=== PATIENT | female | born 1970 | race Caucasian/White ===

== ENCOUNTER 2020-01-16 10:13 | Emergency (ER) | payer SELFPAY ==
[~2020-01-16] VITALS: Ht 170.1 cm; Wt 140.4 kg
[~2020-01-16 10:13] MED LIST: BUPR150T14 PO; DOCU-143 PO; GBPN600T PO; HYDR-4227 PO; HYDR12.56 PO; IBUP-1773 PO; LOSA100T57 PO; TEMA30CA PO
[2020-01-16 10:50] LABS: HEMATOCRIT 40 % (35-52); HEMOGLOBIN 13.3 G/DL (11.5-16.0); MEAN CORPUSCULAR HEMOGLOBIN 29 PG (25-34); MEAN CORPUSCULAR VOLUME 89 FL (80-99); WHITE BLOOD COUNT 7.7 10^3/uL (4.3-11.0)
[2020-01-16 10:51] LABS: BASOPHILS % (AUTO) 0 % (0-10); EOSINOPHILS # (AUTO) 0.1 10^3/uL (0.0-0.3); EOSINOPHILS % (AUTO) 1 % (0-10); LYMPHOCYTES # (AUTO) 1.5 X 10^3 (1.0-4.0); LYMPHOCYTES % (AUTO) 19 % (12-44); MEAN CORPUSCULAR HGB CONC 33 G/DL (32-36); MEAN PLATELET VOLUME 10.7 FL (7.4-10.4); MONOCYTES # (AUTO) 0.5 X 10^3 (0.0-1.0); MONOCYTES % (AUTO) 7 % (0-12); NEUTROPHILS # (AUTO) 5.6 X 10^3 (1.8-7.8); NEUTROPHILS % (AUTO) 73 % (42-75); PLATELET COUNT 212 10^3/uL (130-400)
--- NOTE | 2020-01-16 10:58 | ED General ---
General Chief Complaint: Respiratory Problems Stated Complaint: SOB Nursing Triage Note: Patient presents to the ED with c/o of shortness of breath and chest tightness. She states that she hasn't felt well for the past week. She reports that she became increasingly short of breath over the last 12 hour. She denies any pain but reports chest tightness. She also states that she has her temperature monitored at work and has not experienced a fever. Nursing Sepsis Screen: No Definite Risk History of Present Illness Date Seen by Provider: Jan 16, 2020 Time Seen by Provider: 10:53 Initial Comments 49-year-old female says she just generally hasn't felt well for about a week nothing more specific says that over the last 12 hours she's felt increasingly short of breath with a vague chest tightness but denies pain no fever no cough she's felt a little lightheaded but has not had palpitations or syncope she has hypertension but denies any other cardiac or respiratory history she has occasionally used metered-dose inhaler when ill but not otherwise is unaware of any exposure to illness Arrives in no apparent distress pulse 94 and regular respiratory rate 20 with an O2 sat on room air of 96% blood pressure 145/80 afebrile at 36.1 Allergies and Home Medications Allergies Coded Allergies: Sulfa (Sulfonamide Antibiotics) (Verified Allergy, Unknown, HIVES, 06/29/15) prochlorperazine (Verified Allergy, Unknown, ANAPHYLAXIS, 06/29/15) Home Medications Albuterol Sulfate 1 Puff Puff, 2 PUFF INH Q4H 1 PUFF = 90 MCG Prescribed by: TED MUNIZ on 01/16/20 112 Azithromycin 250 Mg Tablet, 250 MG PO DAILY Prescribed by: TED MUNIZ on 01/16/20 112 Bupropion HCl 150 Mg Tablet.er, 150 MG PO BID, (Reported) Docusate Sodium 100 Mg Capsule, 100 MG PO BID PRN for CONSTIPATION Prescribed by: COLTON MEHTA on 07/02/15 1129 Gabapentin 600 Mg Tablet, 1,200 MG PO TID PRN for BACK/HIP/LEG PAIN, (Reported) TAKE 2 (600MG) TABS Hydrochlorothiazide 12.5 Mg Tablet, 12.5 MG PO DAILY, (Reported) Hydrocodone/Acetaminophen 1 Each Tablet, 1 EACH PO Q4H PRN for PAIN Prescribed by: COLTON MEHTA on 07/02/15 1129 Ibuprofen 600 Mg Tablet, 600 MG PO Q6H Prescribed by: COLTON MEHTA on 07/02/15 1129 Losartan Potassium 100 Mg Tablet, 100 MG PO DAILY, (Reported) Temazepam 30 Mg Capsule, 30 MG PO HS PRN for INSOMNIA, (Reported) Patient Home Medication List Home Medication List Reviewed: Yes Review of Systems Review of Systems Constitutional: No fever EENTM: no symptoms reported Respiratory: No cough; short of breath Cardiovascular: other (some chest tightness) Gastrointestinal: no symptoms reported Genitourinary: no symptoms reported Musculoskeletal: no symptoms reported Skin: no symptoms reported Psychiatric/Neurological: No Symptoms Reported Hematologic/Lymphatic: No Symptoms Reported Past Ozkoopz-Nqggry-Kdxdjh Hx Patient Social History Alcohol Use: Denies Use Recreational Drug Use: No Smoking Status: Never a Smoker 2nd Hand Smoke Exposure: No Recent Foreign Travel: No Contact w/Someone Who Travel: No Recent Infectious Disease Expo: No Recent Hopitalizations: No Physical Abuse: No Sexual Abuse: No Mistreated: No Fear: No Immunizations Up To Date Date of Pneumonia Vaccine: Jan 29, 2014 Date of Influenza Vaccine: Jan 29, 2015 Seasonal Allergies Seasonal Allergies: No Past Medical History Surgeries: Yes (EYE SX X2 AN , D&C, C/S X2, ) Hysterectomy Respiratory: No Cardiac: Yes Hypotension Neurological: No Reproductive Disorders: Yes Genitourinary: No Gastrointestinal: No Gastroesophageal Reflux Musculoskeletal: No Endocrine: No HEENT: No Cancer: No Psychosocial: Yes Anxiety, Depression Integumentary: No Blood Disorders: No Family Medical History Cardiovascular disease 19 MOTHER Diabetes mellitus 19 FATHER FH: cancer 19 MOTHER (OVARIAN AND UTERINE) Hypertension 19 FATHER 19 MOTHER G8 BROTHER G8 SISTER Physical Exam Vital Signs Vital Signs - First Documented 01/16/20 10:18 Temp 36.1 Pulse 94 Resp 20 B/P (MAP) 145/80 (101) Pulse Ox 96 O2 Delivery Room Air Capillary Refill : Less Than 3 Seconds Height, Weight, BMI Height: 5'7.00" Weight: 334lbs. oz. [id number]; 48.00 BMI Method: General Appearance: No Apparent Distress Eyes: Bilateral Eye PERRL, Bilateral Eye EOMI HEENT: Normal ENT Inspection, Pharynx Normal, Moist Mucous Membranes Neck: Supple Respiratory: Lungs Clear, Normal Breath Sounds, No Accessory Muscle Use, No Respiratory Distress Cardiovascular: Regular Rate, Rhythm, No Murmur Gastrointestinal: Normal Bowel Sounds, Non Tender, Soft Focused Exam Lactate Level 01/16/20 11:30: Lactic Acid Level 0.93 Lactic Acid Level Laboratory Tests Test 01/16/20 11:30 Lactic Acid Level 0.93 MMOL/L (0.50-2.00) Progress/Results/Core Measures Suspected Sepsis Recent Fever Within 48 Hours: No Infection Criteria Present: Suspected New Infection New/Unexplained Altered Menta: No Sepsis Screen: No Definite Risk SIRS Temperature: Pulse: 94 Respiratory Rate: 20 Laboratory Tests 01/16/20 10:34: White Blood Count 7.7 Blood Pressure 145 /80 Mean: 101 01/16/20 11:30: Lactic Acid Level 0.93 Laboratory Tests 01/16/20 10:34: Creatinine 0.87, Platelet Count 212, Total Bilirubin 0.6 Results/Orders Lab Results Laboratory Tests Test 01/16/20 10:34 01/16/20 11:15 01/16/20 11:30 Range/Units White Blood Count 7.7 4.3-11.0 10^3/uL Red Blood Count 4.52 4.35-5.85 10^6/uL Hemoglobin 13.3 11.5-16.0 G/DL Hematocrit 40 35-52 % Mean Corpuscular Volume 89 80-99 FL Mean Corpuscular Hemoglobin 29 25-34 PG Mean Corpuscular Hemoglobin Concent 33 32-36 G/DL Red Cell Distribution Width 13.2 10.0-14.5 % Platelet Count 212 130-400 10^3/uL Mean Platelet Volume 10.7 H 7.4-10.4 FL Neutrophils (%) (Auto) 73 42-75 % Lymphocytes (%) (Auto) 19 12-44 % Monocytes (%) (Auto) 7 0-12 % Eosinophils (%) (Auto) 1 0-10 % Basophils (%) (Auto) 0 0-10 % Neutrophils # (Auto) 5.6 1.8-7.8 X 10^3 Lymphocytes # (Auto) 1.5 1.0-4.0 X 10^3 Monocytes # (Auto) 0.5 0.0-1.0 X 10^3 Eosinophils # (Auto) 0.1 0.0-0.3 10^3/uL Basophils # (Auto) 0.0 0.0-0.1 10^3/uL D-Dimer 0.75 H 0.00-0.49 UG/ML Sodium Level 137 135-145 MMOL/L Potassium Level 3.7 3.6-5.0 MMOL/L Chloride Level 101 98-107 MMOL/L Carbon Dioxide Level 23 21-32 MMOL/L Anion Gap 13 5-14 MMOL/L Blood Urea Nitrogen 14 7-18 MG/DL Creatinine 0.87 0.60-1.30 MG/DL Estimat Glomerular Filtration Rate > 60 BUN/Creatinine Ratio 16 Glucose Level 102 70-105 MG/DL Calcium Level 8.7 8.5-10.1 MG/DL Corrected Calcium 9.1 8.5-10.1 MG/DL Total Bilirubin 0.6 0.1-1.0 MG/DL Aspartate Amino Transf (AST/SGOT) 22 5-34 U/L Alanine Aminotransferase (ALT/SGPT) 17 0-55 U/L Alkaline Phosphatase 70 40-136 U/L Troponin I < 0.30 <0.30 NG/ML Total Protein 6.6 6.4-8.2 GM/DL Albumin 3.5 3.2-4.5 GM/DL Lactic Acid Level 0.93 0.50-2.00 MMOL/L My Orders Orders - TED MUNIZ MD Ekg Tracing (01/16/20 10:42) Chest Pa/Lat (2 View) (01/16/20 10:42) Iv Heplock-Insert (Order) (01/16/20 10:42) Cbc With Automated Diff (01/16/20 10:42) Fibrin Degradation Products (01/16/20 10:42) Troponin I Fs (01/16/20 10:42) Comprehensive Metabolic Panel (01/16/20 10:42) Monitor-Rhythm Ecg Trace Only (01/16/20 10:42) Blood Culture (01/16/20 11:12) Lactic Acid Analyzer (01/16/20 11:12) Coronavirus Sars-Cov-2 So 2018 (01/16/20 11:12) Ceftriaxone For Iv Use (Rocephin For I (01/16/20 11:15) Azithromycin Tablet (Zithromax Tablet) (01/16/20 11:15) Ct Angio Chest W (01/16/20 11:47) Blood Culture (01/16/20 11:30) Iohexol Injection (Omnipaque 350 Mg/Ml 1 (01/16/20 12:00) Received Contrast (Hold Metformin- Contr (01/16/20 12:00) Sodium Chloride Flush (Catheter Flush Sy (01/16/20 12:00) Ns (Ivpb) (Sodium Chloride 0.9% Ivpb Bag (01/16/20 12:00) Medications Given in ED Current Medications Medications Dose Ordered Sig/Price Route Start Time Stop Time Status Last Admin Dose Admin Azithromycin 500 mg ONCE ONCE PO 01/16/20 11:15 01/16/20 11:23 DC 01/16/20 11:35 500 MG Ceftriaxone Sodium 1000 mg/ Sterile Water 10 ml @ 200 mls/hr ONCE ONCE IV 01/16/20 11:15 01/16/20 11:23 DC 01/16/20 11:35 200 MLS/HR Iohexol 125 ml ONCE ONCE IV 01/16/20 12:00 01/16/20 12:01 DC 01/16/20 12:25 125 ML Sodium Chloride 10 ml NEEDED PRN IV 01/16/20 12:00 01/16/20 12:25 10 ML Sodium Chloride 100 ml ONCE ONCE IV 01/16/20 12:00 01/16/20 12:01 DC 01/16/20 12:25 100 ML Vital Signs/I&O 01/16/20 10:18 Temp 36.1 Pulse 94 Resp 20 B/P (MAP) 145/80 (101) Pulse Ox 96 O2 Delivery Room Air Capillary Refill : Less Than 3 Seconds Blood Pressure Mean: 101 Progress Note : Progress Note The official chest x-ray report - impression - patchy right-sided pulmonary infi ltrates consistent with pneumonia Hemoglobin 13.3 and white blood count 7700 CMP and troponin are both negative / normal d-dimer -high CT chest - infiltrates, no PE ECG Initial ECG Impression Date: Jan 16, 2020 Initial ECG Impression Time: 10:59 Comment EKG shows sinus rhythm rate 88 no acute changes normal-appearing EKG Departure Impression Primary Impression: Pneumonia Qualified Codes: J18.9 - Pneumonia, unspecified organism Disposition: HOME, SELF-CARE Condition: Stable Departure-Patient Inst. Referrals: ELIA ELIZABETH MD (PCP/Family) Primary Care Physician Patient Instructions: COVID19, Pneumonia, Adult (DC) Add. Discharge Instructions: There does appear to be pneumonia in the right lung, however it does not seem your current status requires hospitalization. Please call and arrange a follow-up with your primary physician within the next several days You should continue to wear a mask and self isolated until the covid result is available Don't hesitate to return if you are worsening Scripts Albuterol Sulfate (VENTOLIN HFA) 1 Puff Puff 2 PUFF INH Q4H, #1 PUFF 1 PUFF = 90 MCG Prov: TED MUNIZ MD 01/16/20 Azithromycin (Azithromycin) 250 Mg Tablet 250 MG PO DAILY, #4 TAB 0 Refills Prov: TED MUNIZ MD 01/16/20 ETD MUNIZ MD Jan 16, 2020 10:58
--- NOTE | 2020-01-16 11:06 | Diagnostic Imaging Report ---
INDICATION: Chest tightness and shortness of breath. TIME OF EXAM: 10:53 AM No prior exams are available for comparison. FINDINGS: Patchy airspace infiltrates are identified in the right upper and right lower lobe. Left lung is clear. There is no effusion or pneumothorax. Heart size normal. IMPRESSION: Patchy right-sided pulmonary infiltrates consistent with pneumonia. Dictated by: Dictated on workstation # [id number]
[2020-01-16] MEDS ORDERED: cefTRIAXone FOR IV USE 1,000 MG in WATER (STERILE) FOR INJECTION 10 ML IV ONE (11:15)
[2020-01-16] MEDS ORDERED: AZITHROMYCIN 250 MG TAB (ZITHROMAX) PO ONE (11:15)
[2020-01-16 11:16] LABS: ALANINE AMINOTRANSFERASE 17 U/L (0-55); ALKALINE PHOSPHATASE 70 U/L (40-136); BILIRUBIN,TOTAL 0.6 MG/DL (0.1-1.0); BUN/CREATININE RATIO 16; CALCIUM 8.7 MG/DL (8.5-10.1); CARBON DIOXIDE 23 MMOL/L (21-32); CHLORIDE 101 MMOL/L (98-107); CREATININE SERUM 0.87 MG/DL (0.60-1.30); GFR ESTIMATED > 60; GLUCOSE 102 MG/DL (70-105); POTASSIUM 3.7 MMOL/L (3.6-5.0); SODIUM 137 MMOL/L (135-145)
[2020-01-16 11:17] LABS: ALBUMIN 3.5 GM/DL (3.2-4.5); TOTAL PROTEIN 6.6 GM/DL (6.4-8.2)
[2020-01-16] MEDS ORDERED: RT-ALBUINH INH (11:27)
[2020-01-16] MEDS ORDERED: AZIT250T12 PO (11:27)
[2020-01-16] MEDS ORDERED: NS 100 ML (IVPB) BAG IV ONE (12:00)
[2020-01-16] MEDS ORDERED: CATHETER FLUSH 10 ML SYR IV PRN (12:00)
[2020-01-16] MEDS ORDERED: IOHEXOL 350 MG/ML 150 ML (OMNIPAQUE 350) VIAL IV ONE (12:00)
[2020-01-16] MEDS ORDERED: HOLD METFORMIN - RECEIVED CONTRAST 20 ML VIAL IV SCH (12:00)
--- NOTE | 2020-01-16 12:45 | Diagnostic Imaging Report ---
PROCEDURE: CT angiography of the chest with contrast. TECHNIQUE: Multiple contiguous axial images were obtained through the chest after uneventful bolus administration of intravenous contrast. 3D reconstructed CTA MIP acquisitions were also performed. Auto Exposure Controls were utilized during the CT exam to meet ALARA standards for radiation dose reduction. INDICATION: Chest tightness, shortness of breath, elevated D-dimer. COMPARISON: No relevant comparison. FINDINGS: There are patchy 5 lobed airspace infiltrates with areas of air bronchogram formation and consolidation, as well as nonconsolidating patchy groundglass densities diffusely. The lung volumes are symmetric. No substantial atelectasis. No evidence for abscess. No pleural fluid. No empyema. There is no evidence for pulmonary arterial embolus. The thoracic aorta is patent and nonaneurysmal. There is no effusion or pneumothorax. No acute soft tissue or osseous chest wall lesion. The visualized upper abdomen shows the spleen size to be at the upper limits of normal. The liver nonfocal. Previous cholecystectomy. The kidneys were unobstructed, although incompletely visualized. IMPRESSION: Patchy 5 lobed infiltrates, presumed pneumonia. Negative for PE or acute aortic disease. No fluid collection or adenopathy. Dictated by: Dictated on workstation # [id number]
[2020-01-16 12:55] VITALS: BP 128/67
--- NOTE | 2020-01-17 09:35 | NUR ---
attempted to return call to pt and notify of positive results. Left message to call back if she had not heard anything from Dustin.
== END 2020-01-16 13:04 | disposition home or self-care (01) ==
LOC: EDUNIT# 10:13 → ER FS 10:15
DX: U07.1 COVID-19 (principal); J12.89 Other viral pneumonia; F41.9 Anxiety disorder, unspecified; F32.9 Major depressive disorder, single episode, unspecified; Z82.49 Family history of ischemic heart disease and other diseases of the circulatory system; Z88.2 Allergy status to sulfonamides; Z88.8 Allergy status to other drugs, medicaments and biological substances; Z83.3 Family history of diabetes mellitus
CPT/HCPCS: 36415; 71046; 71275; 80053; 83605; 84484; 85025; 85379; 87040; 93005; 99284; U0002; 87635

== ENCOUNTER → 2020-09-02 | Outpatient (CLI) | payer SELFPAY ==
[~2020-09-02] MED LIST changes: +AZIT250T12 PO; +RT-ALBUINH INH
--- NOTE | 2020-09-02 16:14 | Diagnostic Imaging Report ---
EXAMINATION: CT head without contrast. TECHNIQUE: Multiple contiguous axial images were obtained through the brain without the use of intravenous contrast. All CT scans use one or more of the following dose optimizing techniques: automated exposure control, MA and/or KvP adjustment based on patient size and exam type or iterative reconstruction. HISTORY: Bad headache. Double vision. COMPARISON: None available. FINDINGS: No large acute territorial ischemia, mass or hemorrhage. No midline shift or mass effect. Mild parenchymal volume loss is noted in the bilateral frontal regions. The ventricles and basilar cisterns are patent and unremarkable. The orbits are normal. Paranasal sinuses are normal. Mastoid air cells are clear. No soft tissue abnormality is seen. No osseus lesion or fracture is seen. IMPRESSION: 1. No large acute territorial ischemia, mass or hemorrhage. 2. Mild parenchymal volume loss primarily in the bilateral frontal regions. Dictated by: Dictated on workstation # [id number]
== END ==
LOC: RAD FS 15:30
PROVIDERS: ATTEND Family Medicine
DX: H53.2 Diplopia (principal); G31.9 Degenerative disease of nervous system, unspecified
CPT/HCPCS: 70450

== ENCOUNTER 2022-02-22 14:09 | Emergency (ER) | payer SELFPAY ==
[~2022-02-22] VITALS: Ht 170.2 cm; Wt 156.5 kg
[~2022-02-22 14:09] MED LIST changes: +BUPR-105 PO; -BUPR150T14 PO
[2022-02-22] MEDS ORDERED: morphine INJ 10 MG/ML 1ML (SYR OR VIAL) IVP STA (14:22)
--- NOTE | 2022-02-22 14:22 | ED General ---
General Chief Complaint: - Reproductive Stated Complaint: SUPRAPUBIC PAIN Source of Information: Patient Exam Limitations: No Limitations History of Present Illness Date Seen by Provider: Feb 22, 2022 Time Seen by Provider: 14:05 Initial Comments 51-year-old female presents for right groin, right flank pain. Symptoms started this morning describes sharp stabbing and severe. No aggravating or alleviating factors. She has never had similar pain in the past. No hematuria or dysuria. Normal bowel movements. No vaginal symptoms. She is had her gallbladder removed and a total abdominal hysterectomy. She has no nausea or vomiting. Allergies and Home Medications Allergies Coded Allergies: Sulfa (Sulfonamide Antibiotics) (Verified Allergy, Unknown, HIVES, 06/29/15) prochlorperazine (Verified Allergy, Unknown, ANAPHYLAXIS, 06/29/15) Patient Home Medication List Home Medication List Reviewed: Yes Albuterol Sulfate (Ventolin Hfa) 1 Puff Puff, 2 PUFF INH Q4H Prescribed by: TED MUNIZ on 01/16/20 112 Azithromycin (Azithromycin) 250 Mg Tablet, 250 MG PO DAILY Prescribed by: TED MUNIZ on 01/16/20 112 Bupropion HCl (Bupropion HCl Sr) 150 Mg Tablet.er, 150 MG PO BID, (Reported) Entered as Reported by: ARNAV LANE on 06/29/15 1408 Docusate Sodium (Colace) 100 Mg Capsule, 100 MG PO BID PRN for CONSTIPATION Prescribed by: COLTON MEHTA on 07/02/15 1129 Gabapentin (Gabapentin) 600 Mg Tablet, 1,200 MG PO TID PRN for BACK/HIP/LEG PAIN, (Reported) Entered as Reported by: ARNAV LANE on 06/29/15 1408 Hydrochlorothiazide (Hydrochlorothiazide) 12.5 Mg Tablet, 12.5 MG PO DAILY, (Reported) Entered as Reported by: ARNAV LANE on 06/29/15 1408 Hydrocodone/Acetaminophen (Herrick 7.5-325 Tablet) 1 Each Tablet, 1 EACH PO Q4H PRN for PAIN Prescribed by: COLTON MEHTA on 07/02/15 1129 Ibuprofen (Ibuprofen) 600 Mg Tablet, 600 MG PO Q6H Prescribed by: COLTON MEHTA on 07/02/15 1129 Losartan Potassium (Losartan Potassium) 100 Mg Tablet, 100 MG PO DAILY, (Reported) Entered as Reported by: ARNAV LANE on 06/29/15 140 Temazepam (Temazepam) 30 Mg Capsule, 30 MG PO HS PRN for INSOMNIA, (Reported) Entered as Reported by: ARNAV LANE on 06/29/15 140 Review of Systems Review of Systems Constitutional: no symptoms reported EENTM: no symptoms reported Respiratory: no symptoms reported Cardiovascular: no symptoms reported Gastrointestinal: abdominal pain Genitourinary: no symptoms reported Musculoskeletal: no symptoms reported Skin: no symptoms reported Psychiatric/Neurological: No Symptoms Reported Hematologic/Lymphatic: No Symptoms Reported Immunological/Allergic: no symptoms reported Past Xyxhhvo-Bvyjvx-Wvsjxz Hx Patient Social History Tobacco Use?: No Use of E-Cig and/or Vaping dev: No Substance use?: No Alcohol Use?: No Seasonal Allergies Seasonal Allergies: No Past Medical History Surgeries: Yes (EYE SX X2 AN , D&C, C/S X2, ) Hysterectomy Respiratory: No Cardiac: Yes Hypotension Neurological: No Reproductive Disorders: Yes Genitourinary: No Gastrointestinal: No Gastroesophageal Reflux Musculoskeletal: No Endocrine: No HEENT: No Cancer: No Psychosocial: Yes Anxiety, Depression Integumentary: No Blood Disorders: No Family Medical History Reviewed Nursing Family Hx Cardiovascular disease 19 MOTHER Diabetes mellitus 19 FATHER FH: cancer 19 MOTHER (OVARIAN AND UTERINE) Hypertension 19 FATHER 19 MOTHER G8 BROTHER G8 SISTER No Pertinent Family Hx Physical Exam Vital Signs Vital Signs - First Documented 02/22/22 14:20 Temp 36.5 Pulse 70 Resp 18 B/P (MAP) 242/116 (158) Pulse Ox 99 O2 Delivery Room Air Capillary Refill : Height, Weight, BMI Height: 5'7.00" Weight: 334lbs. oz. 151.880544jh; 48.00 BMI Method: General Appearance: WD/WN, Moderate Distress (Appears to be in pain, writhing i n the bed) HEENT: Normal ENT Inspection, Pharynx Normal Neck: Full Range of Motion, Normal Inspection, Non Tender, Supple Respiratory: Chest Non Tender, Lungs Clear, Normal Breath Sounds, No Accessory Muscle Use, No Respiratory Distress Cardiovascular: Regular Rate, Rhythm, No Edema, No Gallop, No JVD, No Murmur, Normal Peripheral Pulses Gastrointestinal: Normal Bowel Sounds, No Organomegaly, No Pulsatile Mass, Soft, Tenderness (Right lower abdomen, right flank) Back: Normal Inspection, CVA Tenderness (R) Extremity: Normal Capillary Refill, Normal Inspection, Normal Range of Motion, Non Tender, No Calf Tenderness Neurologic/Psychiatric: Alert, Oriented x3, No Motor/Sensory Deficits Skin: Normal Color, Warm/Dry Lymphatic: No Adenopathy Progress/Results/Core Measures Suspected Sepsis SIRS Temperature: Pulse: Respiratory Rate: Laboratory Tests 02/22/22 14:25: White Blood Count 9.9 Blood Pressure / Mean: Laboratory Tests 02/22/22 14:25: Creatinine 0.87, Platelet Count 245, Total Bilirubin 0.3 Results/Orders Lab Results Laboratory Tests Test 02/22/22 14:18 02/22/22 14:25 Range/Units Urine Color YELLOW Urine Clarity CLEAR Urine pH 6.0 5-9 Urine Specific [place] 1.015 L 1.016-1.022 Urine Protein NEGATIVE NEGATIVE Urine Glucose (UA) NEGATIVE NEGATIVE Urine Ketones NEGATIVE NEGATIVE Urine Nitrite NEGATIVE NEGATIVE Urine Bilirubin NEGATIVE NEGATIVE Urine Urobilinogen 0.2 < = 1.0 MG/DL Urine Leukocyte Esterase NEGATIVE NEGATIVE Urine RBC (Auto) 1+ H NEGATIVE Urine RBC 2-5 H /HPF Urine WBC 0-2 /HPF Urine Squamous Epithelial Cells RARE /HPF Urine Crystals NONE /LPF Urine Bacteria NEGATIVE /HPF Urine Casts PRESENT /LPF Urine Hyaline Casts RARE /LPF Urine Mucus NEGATIVE /LPF Urine Culture Indicated NO White Blood Count 9.9 4.3-11.0 10^3/uL Red Blood Count 4.25 3.80-5.11 10^6/uL Hemoglobin 11.6 11.5-16.0 g/dL Hematocrit 35 35-52 % Mean Corpuscular Volume 83 80-99 fL Mean Corpuscular Hemoglobin 27 25-34 pg Mean Corpuscular Hemoglobin Concent 33 32-36 g/dL Red Cell Distribution Width 14.6 H 10.0-14.5 % Platelet Count 245 130-400 10^3/uL Mean Platelet Volume 9.8 9.0-12.2 fL Immature Granulocyte % (Auto) 0 % Neutrophils (%) (Auto) 72 42-75 % Lymphocytes (%) (Auto) 20 12-44 % Monocytes (%) (Auto) 6 0-12 % Eosinophils (%) (Auto) 2 0-10 % Basophils (%) (Auto) 1 0-10 % Neutrophils # (Auto) 7.1 1.8-7.8 10^3/uL Lymphocytes # (Auto) 2.0 1.0-4.0 10^3/uL Monocytes # (Auto) 0.6 0.0-1.0 10^3/uL Eosinophils # (Auto) 0.2 0.0-0.3 10^3/uL Basophils # (Auto) 0.1 0.0-0.1 10^3/uL Immature Granulocyte # (Auto) 0.0 0.0-0.1 10^3/uL Sodium Level 138 135-145 MMOL/L Potassium Level 4.0 3.6-5.0 MMOL/L Chloride Level 101 98-107 MMOL/L Carbon Dioxide Level 23 21-32 MMOL/L Anion Gap 14 5-14 MMOL/L Blood Urea Nitrogen 18 7-18 MG/DL Creatinine 0.87 0.60-1.30 MG/DL Estimat Glomerular Filtration Rate 82 BUN/Creatinine Ratio 21 Glucose Level 124 H 70-105 MG/DL Calcium Level 9.0 8.5-10.1 MG/DL Corrected Calcium 9.2 8.5-10.1 MG/DL Total Bilirubin 0.3 0.1-1.0 MG/DL Aspartate Amino Transf (AST/SGOT) 21 5-34 U/L Alanine Aminotransferase (ALT/SGPT) 16 0-55 U/L Alkaline Phosphatase 90 40-136 U/L Total Protein 7.1 6.4-8.2 GM/DL Albumin 3.7 3.2-4.5 GM/DL Lipase 18 8-78 U/L My Orders Orders - EDEN FERRER DO Cbc With Automated Diff (02/22/22 14:22) Comprehensive Metabolic Panel (02/22/22 14:22) Lipase (02/22/22 14:22) Ua Culture If Indicated (02/22/22 14:22) Ct Abd/Pelvis Wo(Kidney Stone) (02/22/22 14:22) Morphine Injection (Morphine Injection (02/22/22 14:22) Ketorolac Injection (Toradol Injection) (02/22/22 14:45) Ketorolac Injection (Toradol Injection) (02/22/22 14:37) Hydromorphone Injection (Dilaudid Inject (02/22/22 15:30) Ns Iv 1000 Ml (Sodium Chloride 0.9%) (02/22/22 15:30) Medications Given in ED Vital Signs/I&O 02/22/22 02/22/22 14:20 16:20 Temp 36.5 36.2 Pulse 70 97 Resp 18 22 B/P (MAP) 242/116 (158) 178/68 Pulse Ox 99 94 O2 Delivery Room Air Room Air 02/23/22 00:00 Intake Total 1000 ml Balance 1000 ml Capillary Refill : Diagnostic Imaging Diagonstic Imaging: CT Plain Films/CT/US/NM/MRI: abdomen Comments NAME: SARI [facility]CGOVERN [facility] REC#: [id number] PT STATUS: REG ER : 1970 PHYSICIAN: EDEN FERRER DO ADMIT DATE: 02/22/22/ER FS Draft Date of Exam:02/22/22 CT ABD/PELVIS WO(KIDNEY STONE) PROCEDURE: CT urinary tract, rule out kidney stone. TECHNIQUE: Multiple contiguous axial images were obtained through the abdomen and pelvis without the use of intravenous contrast. Auto Exposure Controls were utilized during the CT exam to meet ALARA standards for radiation dose reduction. INDICATION: Right flank pain There is no focal hepatic, pancreatic or splenic abnormality. Gallbladder surgically absent. Adrenal glands are also unremarkable. There is mild left renal atrophy with punctate nonobstructing stone in the upper pole of the left kidney. There is moderate right hydronephrosis and hydroureter to the level of an approximately 1 cm stone within the proximal right ureter. There does punctate calcification at the right ureterovesical junction as well. Urinary bladder is decompressed. No free fluid is seen within the abdomen or pelvis. There is no evidence of organized fluid collection or focal inflammation. IMPRESSION: At least partially obstructing 1 cm calculus in the proximal right ureter with moderate right hydronephrosis. There may also be punctate stone at the level of the right ureterovesical junction. Minimal left nephrolithiasis is noted without additional obstruction. Departure Impression Primary Impression: Ureterolithiasis Additional Impression: Renal colic on right side Departure-Patient Inst. Referrals: ELIA ELIZABETH MD (PCP) Primary Care Physician EDEN FERRER DO Feb 22, 2022 14:21
[2022-02-22 14:31] LABS: BASOPHILS # (AUTO) 0.1 10^3/uL (0.0-0.1); BASOPHILS % (AUTO) 1 % (0-10); EOSINOPHILS # (AUTO) 0.2 10^3/uL (0.0-0.3); EOSINOPHILS % (AUTO) 2 % (0-10); HEMATOCRIT 35 % (35-52); HEMOGLOBIN 11.6 g/dL (11.5-16.0); LYMPHOCYTES % (AUTO) 20 % (12-44); MEAN CORPUSCULAR HEMOGLOBIN 27 pg (25-34); MEAN CORPUSCULAR HGB CONC 33 g/dL (32-36); MEAN CORPUSCULAR VOLUME 83 fL (80-99); MEAN PLATELET VOLUME 9.8 fL (9.0-12.2); MONOCYTES # (AUTO) 0.6 10^3/uL (0.0-1.0); MONOCYTES % (AUTO) 6 % (0-12); NEUTROPHILS # (AUTO) 7.1 10^3/uL (1.8-7.8); NEUTROPHILS % (AUTO) 72 % (42-75); PLATELET COUNT 245 10^3/uL (130-400); WHITE BLOOD COUNT 9.9 10^3/uL (4.3-11.0)
[2022-02-22 14:33] LABS: BILIRUBIN,URINE NEGATIVE (NEGATIVE); CLARITY,URINE CLEAR; COLOR,URINE YELLOW; GLUCOSE, URINE (UA) NEGATIVE (NEGATIVE); KETONES,URINE NEGATIVE (NEGATIVE); LEUKOCYTE ESTERASE ,URINE NEGATIVE (NEGATIVE); NITRITE,URINE NEGATIVE (NEGATIVE); PROTEIN,URINE NEGATIVE (NEGATIVE)
[2022-02-22] MEDS ORDERED: KETOROLAC 30 MG/ML VIAL ONE (14:37)
[2022-02-22 14:38] LABS: BACTERIA,URINE NEGATIVE /HPF; HYALINE CASTS, URINE RARE /LPF; SQUAMOUS EPITHELIAL CELL,UR RARE /HPF; WBC,URINE 0-2 /HPF
[2022-02-22] MEDS ORDERED: KETOROLAC 30 MG/ML VIAL IVP ONE (14:45)
[2022-02-22 14:50] LABS: CREATININE SERUM 0.87 MG/DL (0.60-1.30)
[2022-02-22 14:51] LABS: ALBUMIN 3.7 GM/DL (3.2-4.5); BILIRUBIN,TOTAL 0.3 MG/DL (0.1-1.0); TOTAL PROTEIN 7.1 GM/DL (6.4-8.2)
--- NOTE | 2022-02-22 15:09 | Diagnostic Imaging Report ---
PROCEDURE: CT urinary tract, rule out kidney stone. TECHNIQUE: Multiple contiguous axial images were obtained through the abdomen and pelvis without the use of intravenous contrast. Auto Exposure Controls were utilized during the CT exam to meet ALARA standards for radiation dose reduction. INDICATION: Right flank pain There is no focal hepatic, pancreatic or splenic abnormality. Gallbladder surgically absent. Adrenal glands are also unremarkable. There is mild left renal atrophy with punctate nonobstructing stone in the upper pole of the left kidney. There is moderate right hydronephrosis and hydroureter to the level of an approximately 1 cm stone within the proximal right ureter. There does punctate calcification at the right ureterovesical junction as well. Urinary bladder is decompressed. No free fluid is seen within the abdomen or pelvis. There is no evidence of organized fluid collection or focal inflammation. IMPRESSION: At least partially obstructing 1 cm calculus in the proximal right ureter with moderate right hydronephrosis. There may also be punctate stone at the level of the right ureterovesical junction. Minimal left nephrolithiasis is noted without additional obstruction. Dictated by: Dictated on workstation # [id number]
[2022-02-22] MEDS ORDERED: HYDROmorphone 2 MG/ML VIAL (DILAUDID) IV ONE (15:30)
[2022-02-22] MEDS ORDERED: NS IV 1000 ML 1,000 ML IV SCH (15:30)
[2022-02-22 16:20] VITALS: BP 178/68
== END 2022-02-22 16:23 | disposition short-term general hospital (02) ==
LOC: EDUNIT# 14:09 → ER FS 14:10
DX: N13.2 Hydronephrosis with renal and ureteral calculous obstruction (principal); Z28.310 Unvaccinated for COVID-19
CPT/HCPCS: 36415; 74176; 80053; 81000; 83690; 85025